=== PATIENT | female | born 1965 | race Caucasian/White ===

== ENCOUNTER 2019-05-09 09:38 | Inpatient (IN) ==
[2019-05-09] MEDS ORDERED: diphenhydrAMINE 50 MG/1 ML VIAL ONE (09:42)
[2019-05-09] MEDS ORDERED: EPINEPHrine 1 MG/10 ML SYRINGE ONE (09:49)
[2019-05-09] MEDS ORDERED: SODIUM CHLORIDE 0.9% 2,000 ML IV STA (09:50)
[2019-05-09] MEDS ORDERED: EPINEPHrine 1 MG/ML VIAL ONE ×2 (09:52→10:03)
[2019-05-09] MEDS ORDERED: FAMOTIDINE 20 MG/2 ML VIAL IV ONE (09:53)
[2019-05-09] MEDS ORDERED: FAMOTIDINE 20 MG/2 ML VIAL IV STA (09:54)
[2019-05-09] MEDS ORDERED: EPINEPHrine 1 MG/ML VIAL SUBCUT STA (09:54)
[2019-05-09] MEDS ORDERED: NOREPINEPHRINE 4 MG/4 ML VIAL IV ONE (10:29)
[2019-05-09] MEDS ORDERED: EPINEPHrine 1 MG/ML VIAL IM ONE ×2 (10:41→11:15)
[2019-05-09] MEDS ORDERED: SODIUM CHLORIDE 0.9% 1,000 ML IV STA (11:15)
[2019-05-09 11:57] LABS: Apearance,Urine CLEAR (Clear); Bilirubin,Urine Negative (Negative); Blood, Urine Small mg/dL (Negative); Glucose,Urine (UA) Negative (Negative); Hyaline Casts,Urine 1 /LPF (0-3); Ketones,Urine Negative (Negative); Mucus,Urine Occasional /LPF (Occasional); Nitrite,Urine Negative (Negative); Protein,Urine Negative; RBC,Urine <1 /HPF (0-4); Squamous Epithelial Cell,Urine Occasional /HPF (0-10); Urine Color Yellow (Yellow); Urine Specific Gravity 1.019 (1.001-1.035); Urine Urobilinogen < 2.0 EU/DL (0.2-1.0); WBC,Urine 1 /HPF (0-6)
[2019-05-09 12:08] LABS: Alanine Aminotransferase 13 U/L (13-56); Albumin 2.7 G/DL (3.4-5.0); Alkaline Phosphatase 97 U/L (45-117); Aspartate Amino Transferase 13 U/L (0-37); Bilirubin,Total < 0.39 MG/DL (0.2-1.0); Blood Urea Nitrogen 13 MG/DL (7-18); Calcium 7.3 MG/DL (8.5-10.1); Glucose 184 MG/DL (74-106); Total Protein 5.3 G/DL (6.4-8.3)
[2019-05-09 12:14] LABS: Basophils # 0.1 10*3/uL (0.0-0.2); Basophils % 0.4 % (0.0-0.8); Eosinophils # 0.1 10*3/uL (0.0-0.87); Eosinophils % 0.2 % (0.00-10.9); Hematocrit 37.8 VOL% (35.7-47.0); Hemoglobin 11.8 GM/DL (12.0-16.0); Immature Granulocytes % 2.1 %; Immature Granulocytes Absolute 0.54 #; Lymphocytes # 3.9 10*3/uL (1.4-4.0); Mean Corpuscular HGB Conc 31.2 GM/DL (32-36); Mean Corpuscular Volume 87.5 FL (87-102); Mean Platelet Volume 10.1 FL (9.6-12.0); Monocytes % 5.2 % (1.7-12.7); Neutrophils % 77.1 % (38.7-73.9); Platelet Count 251 T/CUMM (130-400); Red Blood Count 4.32 MC/CUMM (3.8-5.5); Red Cell Distribution Width 15.7 % (9.3-17.3); White Blood Count 25.6 T/CUMM (4-12)
[2019-05-09] MEDS ORDERED: ACETAMINOPHEN 325 MG TABLET PO PRN (12:23)
[2019-05-09] MEDS ORDERED: ONDANSETRON 4 MG/2 ML VIAL IV PRN (12:23)
[2019-05-09] MEDS ORDERED: methylPREDNISolone SOD SUC 125 MG/2 ML VIAL IV SCH (12:30)
[2019-05-09] MEDS ORDERED: ENOXAPARIN 40 MG/0.4 ML SYRINGE SUBCUT SCH (12:30)
[2019-05-09] MEDS ORDERED: LEVOFLOXACIN INJ 500 MG in PREMIX 1 EACH IV SCH (12:30)
[2019-05-09 12:34] LABS: Anisocytosis 1+; Band Neutrophils 18 % (0-10); Eosinophils 2 % (0-10); Lymphocytes 12 % (20-55); Platelet Estimate Normal; Segmented Neutrophils 64 % (50-85); Smudge Cells Few; Total Cells Counted 100
[2019-05-09 13:17] LABS: Folate 14.9 NG/ML (5.4-24.0)
[2019-05-09] MEDS: SODIUM CHLORIDE 0.9% 1,000 ML IV SCH ×2 (14:36→22:52)
[2019-05-09 15:14] VITALS: BP 128/71
[2019-05-09] MEDS: diphenhydrAMINE 50 MG/1 ML VIAL IV SCH (18:40)
[2019-05-10] MEDS: SODIUM CHLORIDE 0.9% 1,000 ML IV SCH ×3 (00:37→07:00)
[2019-05-10] MEDS: diphenhydrAMINE 50 MG/1 ML VIAL IV SCH ×2 (00:39→06:19)
[2019-05-10 05:27] LABS: Basophils % 0.2 % (0.0-0.8); Hematocrit 31.1 VOL% (35.7-47.0); Hemoglobin 9.9 GM/DL (12.0-16.0); Immature Granulocytes % 2.2 %; Lymphocytes # 1.3 10*3/uL (1.4-4.0); Lymphocytes % 9.7 % (21.3-54.2); Mean Corpuscular HGB Conc 31.8 GM/DL (32-36); Mean Corpuscular Volume 86.9 FL (87-102); Mean Platelet Volume 9.8 FL (9.6-12.0); Monocytes % 1.3 % (1.7-12.7); Neutrophils % 86.6 % (38.7-73.9); Platelet Count 198 T/CUMM (130-400); Red Blood Count 3.58 MC/CUMM (3.8-5.5); Red Cell Distribution Width 15.7 % (9.3-17.3); White Blood Count 13.6 T/CUMM (4-12)
[2019-05-10 05:45] LABS: Calcium 8.3 MG/DL (8.5-10.1); Osmolality,Calculated 291.7 MOS/KG (273-304)
[2019-05-10] MEDS ORDERED: PANTOPRAZOLE 40 MG TABLET PO SCH (09:00)
[2019-05-10] MEDS ORDERED: POTASSIUM CHLORIDE 10 MEQ TABLET PO SCH (09:00)
[2019-05-10] MEDS ORDERED: FERROUS SULFATE 325 MG TABLET PO SCH (09:00)
[2019-05-10] MEDS ORDERED: ANASTROZOLE 1 MG TABLET PO SCH (09:00)
[2019-05-10] MEDS ORDERED: ASPIRIN EC 81 MG TABLET PO SCH (09:00)
[2019-05-10] MEDS ORDERED: NON-FORMULARY MEDICATION (Omeprazole 20 MG) PO SCH (09:00)
[2019-05-10] MEDS ORDERED: POTASSIUM CHLORIDE 20 MEQ TABLET PO SCH (09:00)
[2019-05-10] MEDS ORDERED: METOPROLOL SUCCINATE XL 50 MG TABLET PO SCH (09:00)
[2019-05-10] MEDS ORDERED: amLODIPine 10 MG TABLET PO SCH (21:00)
== END 2019-05-10 12:55 | disposition home or self-care (01) | DRG 916 ==
LOC: N.ED 09:38 → N.EDINP 12:24 → SUATTDRO 12:24 → N.EDINP 14:00 → N.ICU 14:23
PROVIDERS: ADMIT Internal Medicine Nephrology; ATTEND Internal Medicine